=== PATIENT | female | born 1955 | race American Indian/Alaskan Native ===

== ENCOUNTER 2019-11-09 08:25 | Outpatient (CLI) | payer MEDICARE ==
--- NOTE | 2019-11-09 11:42 | Mammography Report ---
DIGITAL SCREENING MAMMOGRAM WITH CAD, 11/09/2019 INDICATION: Routine screening mammography. TECHNIQUE: Digital bilateral 2D mammography was obtained in the craniocaudal and mediolateral obliq ue projections. This examination was interpreted with the benefit of Computer-Aided Detection analysi s. COMPARISON: None available FINDINGS: Breast Density: The breasts are heterogeneously dense, which may obscure small masses. There is no evidence of dominant mass, suspicious calcifications or architectural distortion in the l eft breast. A biopsy clip is seen in the upper outer quadrant of the left breast. There is a 10 mm fo barbara asymmetric density with associated calcifications seen in the central to 12:00 position of the ri ght breast, middle to posterior depth. IMPRESSION: 1. A focal asymmetric density with associated calcifications in the right breast is indeterminate and requires comparison with prior mammograms. If prior mammograms are unable to be obtained, recommend right magnification views and targeted ultrasound if needed. Follow up recommendation: Obtain prior study for comparison Category 0: Incomplete. Needs additional imaging evaluation and/or prior mammograms for comparison. A "normal" or negative report should not discourage follow up or biopsy of a clinically significant f inding. A written summary of these findings will be mailed to the patient. The patient will be entered into a mammography reporting system which will generate a reminder letter for the patient's next appointmen t at the appropriate interval. [employer] recommends yearly mammograms starting at age 40 and continuing as l narinder as a woman is in good health. Breast MRI is recommended for women with an approximate 20-25% or greater lifetime risk of breast cancer, including women with a strong family history of breast or ova antonia cancer or who have been treated for Hodgkin's disease. Signer Name: Payton Cheung MD Signed: 11/09/2019 11:38 AM Workstation Name: [employer]
== END 2019-11-09 08:26 | disposition home or self-care (01) ==
LOC: MAMMO 08:25
PROVIDERS: ATTEND Internal Medicine
DX: R92.8 Other abnormal and inconclusive findings on diagnostic imaging of breast (principal)
CPT/HCPCS: 77067